=== PATIENT | female | born 1980 | race Caucasian/White ===

== ENCOUNTER 2018-08-14 19:08 | Emergency (ER) | payer OTHER ==
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
[2018-08-14] MEDS ORDERED: IBUPROFEN 800 MG TAB PO ONE (19:31)
[2018-08-14] MEDS ORDERED: DIAZEPAM 5 MG PREPACK#4 BTL TAKEHOME ONE (19:32)
[2018-08-14 20:17] VITALS: BP 114/71
== END 2018-08-14 20:15 | disposition home or self-care (01) ==
LOC: CED 19:08
DX: S16.1XXA Strain of muscle, fascia and tendon at neck level, initial encounter (principal); E03.9 Hypothyroidism, unspecified; V49.49XA Driver injured in collision with other motor vehicles in traffic accident, initial encounter; Y92.410 Unspecified street and highway as the place of occurrence of the external cause
CPT/HCPCS: 72040-PO; 72070-PO; 99283-ER